=== PATIENT | female | born 1965 | race Caucasian/White ===

== ENCOUNTER 2016-05-29 13:14 | Emergency (ER) | payer BC ==
[2016-05-29] MEDS ORDERED: ONDANSETRON HCL INJ/PF 4 MG/2 ML SDV IV ONE ×2 (13:19→16:39)
[2016-05-29] MEDS ORDERED: KETOROLAC TROMETHAMINE INJ/PF 30 MG/1 ML SDV IV ONE (13:19)
--- NOTE | 2016-05-29 13:20 | ER Document Report ---
ED Medical Screen (RME) - General Stated Complaint: LEFT FLANK PAIN,NAUSEA Mode of Arrival: Ambulatory Information source: Patient Notes: Patient complains of left lower quadrant abdominal pain and left lower back pain that started today. Patient does report some shooting pain with urination. Patient has a history of kidney stones and suspects the same today. I have greeted and performed a rapid initial assessment of this patient. A comprehensive ED assessment and evaluation of the patient, analysis of test results and completion of the medical decision making process will be conducted by additional ED providers. TRAVEL OUTSIDE OF THE [place] IN LAST 30 DAYS: No - Related Data Allergies/Adverse Reactions: amoxicillin [Amoxicillin] Allergy (Verified 09/06/14 04:22) cefaclor [From Ceclor] Allergy (Verified 09/06/14 04:22) diphenhydramine HCl [From Benadryl] Allergy (Verified 09/06/14 04:22) erythromycin base [Erythromycin Base] Allergy (Verified 09/06/14 04:22) Penicillins Allergy (Verified 09/06/14 04:22) Past Medical History Past Surgical History: Reports: Hx Breast Surgery - reduction, Hx Hysterectomy, Hx Tubal Ligation Physical Exam - Abdominal Tenderness: Tender - Left lower quadrant
[2016-05-29 13:41] LABS: ABSOLUTE BASOPHILS # (AUTO) 0.1 10^3/uL (0.0-0.2); ABSOLUTE EOSINOPHILS # (AUTO) 0.1 10^3/uL (0.0-0.6); ABSOLUTE LYMPHOCYTES (AUTO) 1.5 10^3/uL (0.5-4.7); ABSOLUTE MONOCYTES (AUTO) 0.4 10^3/uL (0.1-1.4); ABSOLUTE NEUT (AUTO) 3.4 10^3/uL (1.7-8.2); BASOPHILS % (AUTO) 1.4 % (0-2); EOSINOPHILS % (AUTO) 2.7 % (0-6); HEMATOCRIT 38.9 % (36.0-47.0); HGB HCT DIFFERENCE 0.1; LYMPHOCYTES % (AUTO) 27.9 % (13-45); MEAN CORPUSCULAR HEMOGLOBIN 28.3 pg (27.0-33.4); MEAN CORPUSCULAR HGB CONC 33.3 g/dL (32.0-36.0); MEAN CORPUSCULAR VOLUME 85 fl (80-97); MONOCYTES % (AUTO) 6.6 % (3-13); RED BLOOD COUNT 4.57 10^6/uL (3.72-5.28); RED CELL DISTRIBUTION WIDTH 14.1 % (11.5-14.0); SEGMENTED NEUTROPHILS % (AUTO) 61.4 % (42-78); WHITE BLOOD COUNT 5.5 10^3/uL (4.0-10.5)
[2016-05-29] MEDS ORDERED: MORPHINE SULFATE 10 MG/ML INJ IV ONE ×2 (13:53→16:39)
[2016-05-29 13:56] LABS: APPEARANCE,URINE CLEAR; BILIRUBIN,URINE NEGATIVE (NEGATIVE); GLUCOSE, URINE NEGATIVE (NEGATIVE); KETONES,URINE NEGATIVE (NEGATIVE); LEUKOCYTE ESTERASE,URINE NEGATIVE (NEGATIVE); NITRITE,URINE NEGATIVE (NEGATIVE); PROTEIN,URINE NEGATIVE (NEGATIVE); URINE SPECIFIC GRAVITY 1.005; UROBILINOGEN,URINE NEGATIVE mg/dL (<2.0)
[2016-05-29 13:56] LABS: ALANINE AMINOTRANSFERASE 33 U/L (9-52); ALBUMIN 4.1 g/dL (3.5-5.0); ALKALINE PHOSPHATASE 68 U/L (38-126); ANION GAP 12 (5-19); ASPARTATE AMINO TRANSFERASE 46 U/L (14-36); BILIRUBIN,TOTAL 0.5 mg/dL (0.2-1.3); BLOOD UREA NITROGEN 11 mg/dL (7-20); CALCIUM 9.6 mg/dL (8.4-10.2); CARBON DIOXIDE 28 mmol/L (22-30); CHLORIDE 103 mmol/L (98-107); CREATININE RESULT 0.62 mg/dL (0.52-1.25); GLUCOSE 99 mg/dL (75-110); LIPASE 104.8 U/L (23-300); POTASSIUM 4.1 mmol/L (3.6-5.0); SODIUM 143.2 mmol/L (137-145); TOTAL PROTEIN 7.6 g/dL (6.3-8.2)
--- NOTE | 2016-05-29 13:59 | ER Document Report ---
ED GI/ - General Mode of Arrival: Ambulatory Information source: Patient TRAVEL OUTSIDE OF THE [place] IN LAST 30 DAYS: No - HPI Patient complains to provider of: Abdominal pain - LLQ, Flank pain - left, Vaginal pain, Vomiting Onset: Other - last night Location: LLQ, Left flank, Vaginal Associated symptoms: Other - see above <PRAVIN RUSSELL - Last Filed: 05/29/16 13:53> <MONE CAVANAUGH - Last Filed: 05/29/16 18:26> <CHRIS BURT - Last Filed: 05/30/16 06:04> - General Chief Complaint: Flank Pain Stated Complaint: LEFT FLANK PAIN,NAUSEA Notes: 51 year old female presents to the ED complaining of left flank pain that radiates to her LLQ and vaginal area which started last night. Patient states that the pain is getting progressively worse and that she has been vomiting. Patient states that she last had a kidney stone 21 years ago when she was . (PRAVIN RUSSELL) - Related Data Allergies/Adverse Reactions: amoxicillin [Amoxicillin] Allergy (Verified 05/29/16 13:21) cefaclor [From Ceclor] Allergy (Verified 05/29/16 13:21) diphenhydramine HCl [From Benadryl] Allergy (Verified 05/29/16 13:21) erythromycin base [Erythromycin Base] Allergy (Verified 05/29/16 13:21) Penicillins Allergy (Verified 05/29/16 13:21) Past Medical History - General Information source: Patient - Social History Smoking Status: Never Smoker Chew tobacco use (# tins/day): No Frequency of alcohol use: None Drug Abuse: None Family History: Reviewed & Not Pertinent Patient has suicidal ideation: No Patient has homicidal ideation: No Renal/ Medical History: Reports: Hx Kidney Stones - last episode 21 years ago. Denies: Hx Peritoneal Dialysis Past Surgical History: Reports: Hx Breast Surgery - reduction, Hx Hysterectomy, Hx Tubal Ligation <PRAVIN RUSSELL - Last Filed: 05/29/16 13:53> Review of Systems - Review of Systems Constitutional: No symptoms reported EENT: No symptoms reported Cardiovascular: No symptoms reported Respiratory: No symptoms reported Gastrointestinal: See HPI, Abdominal pain - LLQ, Vomiting Genitourinary: See HPI, Flank pain - left Female Genitourinary: See HPI, Other - Vaginal pain Musculoskeletal: No symptoms reported Skin: No symptoms reported Hematologic/Lymphatic: No symptoms reported Neurological/Psychological: No symptoms reported -: Yes All other systems reviewed and negative <PRAVIN RUSSELL - Last Filed: 05/29/16 13:53> Physical Exam - Vital signs Interpretation: Normal - General General appearance: Alert, Other - Appears uncomfortable In distress: None - HEENT Head: Normocephalic, Atraumatic Eyes: Normal Extraocular movements intact: Yes Pupils: PERRL - Respiratory Respiratory status: No respiratory distress - Cardiovascular Rhythm: Regular - Extremities General upper extremity: Normal inspection, Normal ROM General lower extremity: Normal inspection, Normal ROM, Normal weight bearing - Neurological Neuro grossly intact: Yes - Psychological Associated symptoms: Normal affect, Normal mood - Skin Skin Temperature: Warm Skin Moisture: Dry Skin Color: Normal <PRAVIN RUSSELL - Last Filed: 05/29/16 13:53> <MONE CAVANAUGH - Last Filed: 05/29/16 18:26> - Abdominal Inspection: Normal Bowel sounds: Normal Tenderness: Tender - LLQ. No: Guarding, Rebound - Back Back: Nontender. No: CVA tenderness <CHRIS BURT - Last Filed: 05/30/16 06:04> - Vital signs Vitals: Temp Pulse Resp BP Pulse Ox 98.0 F 71 20 125/68 100 05/29/16 13:19 05/29/16 13:19 05/29/16 13:19 05/29/16 13:19 05/29/16 13:19 (PRAVIN RUSSELL) (MONE CAVANAUGH) (CHRIS BURT) Course - Laboratory Result Diagrams: 05/29/16 13:25 05/29/16 13:25 <PRAVIN RUSSELL - Last Filed: 05/29/16 13:53> - Laboratory Result Diagrams: 05/29/16 13:25 05/29/16 13:25 <MONE CAVANAUGH - Last Filed: 05/29/16 18:26> - Laboratory Result Diagrams: 05/29/16 13:25 05/29/16 13:25 - Transfer of Care Care transferred to following provider: Dr. Cavanaugh <CHRIS BURT - Last Filed: 05/30/16 06:04> - Vital Signs Vital signs: Temp Pulse Resp BP Pulse Ox 97.8 F 58 L 16 115/69 100 05/29/16 18:52 05/29/16 18:52 05/29/16 18:52 05/29/16 18:52 05/29/16 18:52 (PRAVIN RUSSELL) (MONE CAVANAUGH) (CHRIS BURT) - Laboratory Laboratory results interpreted by me: 05/29/16 05/29/16 13:25 13:25 RDW 14.1 H AST 46 H (PRAVIN RUSSELL) (MONE CAVANAUGH) (CHRIS BURT) - Transfer of Care Notes: 05/29/16 16:24 Patient care transferred to Dr. Cavanaugh pending results of an abdomen- pelvis CT contrasted study. The discharge was typed up assuming this will be a kidney stone. If it turns out to be something else, he will remove the discharge instructions from the chart and change the diagnosis and discharge appropriately. (CHRIS BURT) Discharge <PRAVIN RUSSELL - Last Filed: 05/29/16 13:53> <MONE CAVANAUGH - Last Filed: 05/29/16 18:26> <CHRIS BURT - Last Filed: 05/30/16 06:04> - Discharge Clinical Impression: Left flank pain Abdominal pain Qualifiers: Abdominal location: left lower quadrant Qualified Code(s): R10.32 - Left lower quadrant pain Condition: Stable Disposition: ADMITTED INPATIENT Additional Instructions: Kidney Stone: You are passing or have passed a kidney stone. These stones are usually due to increased calcium or uric acid concentrations in your urine. Stones within the kidney itself are not painful. The pain occurs as the stone leaves the kidney to pass down the long tube, called the ureter, leading to the bladder. If the stone is small, it will usually pass by itself. Most patients can pass the stone at home. You will usually receive medications for pain, nausea or vomiting, and sometimes a medication to assist in passing the kidney stone. However, if the pain is very severe or if vomiting prevents you from taking oral pain medications, you may need to return for further treatment. Drink three or four quarts of fluids per day. You will be given pain medication (if needed) and urine strainers. Strain all your urine to see if the stone passes. If your doctor has asked you to bring the stone in for analysis, return with the stone once it has passed. Return if pain or vomiting become severe, if you develop a high fever, if you are unable to pass your urine, or if other unusual symptoms occur. TAKE THE MEDICATIONS PRESCRIBED FOR PAIN IF NEEDED. DRINK PLENTY FLUIDS. REST. STRAIN YOUR URINE. FOLLOW UP WITH YOUR DOCTOR IF NOT IMPROVING. RETURN TO THE EMERGENCY ROOM IF ANY NEW OR WORSENING SYMPTOMS. Prescriptions: Ondansetron [Zofran Odt 4 mg Tablet] 1 - 2 tab PO Q4H PRN #15 tab.rapdis PRN Reason: For Nausea/Vomiting Oxycodone HCl/Acetaminophen [Percocet 5-325 mg Tablet] 1 - 2 tab PO ASDIR PRN # 20 tablet PRN Reason: Tamsulosin HCl [Flomax] 0.4 mg PO DAILY #14 cap.er.24h Referrals: RADHA GUTIERREZ MD [Primary Care Provider] - Follow up as needed Scribe Documentation - Scribe Written by Alicia:: Alicia Baltazar, 05/29/2016 1401 acting as scribe for :: Lupe <PRAVIN RUSSELL - Last Filed: 05/29/16 13:53>
[2016-05-29 18:53] VITALS: BP 115/69
== END 2016-05-29 18:51 | disposition other institution (70) ==
LOC: ER 13:14
DX: R11.0 Nausea (principal); R10.9 Unspecified abdominal pain; R10.32 Left lower quadrant pain
CPT/HCPCS: 96376; 99284; 96374; 96375; 36415; 83690; 85025; 80053; 81001; 74177; J1885; J2270; J2405